=== PATIENT | female | born 2005 | race Caucasian/White ===

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

== ENCOUNTER → 2023-02-24 | Outpatient (CLI) | payer OTHER | LOC: M WHC 13:30 | PROVIDERS: ATTEND Nurse Practitioner Women's Health | DX: D24.2 Benign neoplasm of left breast (principal) ==

== ENCOUNTER → 2023-05-09 | Outpatient (CLI) | payer OTHER | LOC: M RAD 09:25 | PROVIDERS: ATTEND Nurse Practitioner Family | DX: R06.02 Shortness of breath (principal) ==

== ENCOUNTER → 2024-02-18 | Outpatient (CLI) | payer OTHER | LOC: M WHC 07:57 | PROVIDERS: ATTEND Nurse Practitioner Family | DX: N64.4 Mastodynia (principal); N63.11 Unspecified lump in the right breast, upper outer quadrant ==

== ENCOUNTER → 2024-06-11 | Outpatient (REF) | payer OTHER ==
[2024-06-11 17:44] LABS: BASO # 0.1 10^3/uL (0.0-0.2); BASO % 0.9 % (0.0-1.0); EOS # 0.1 10^3/uL (0.0-0.5); EOS % 1.6 % (0.0-3.0); HEMATOCRIT 38.8 % (36.0-47.0); LYMPH # 2.1 10^3/uL (1.5-5.0); LYMPH % 36.8 % (24.0-44.0); MEAN CORPUSCULAR HEMOGLOBIN 29.4 pg (27.0-33.0); MEAN CORPUSCULAR HGB CONC 33.5 g/dl (32.0-36.5); MEAN CORPUSCULAR VOLUME 87.8 fl (80.0-96.0); MONO # 0.5 10^3/uL (0.0-0.8); MONO % 9.6 % (2.0-8.0); NEUTROPHILS # 2.9 10^3/uL (1.5-8.5); NEUTROPHILS % 50.9 % (36.0-66.0); PLATELET COUNT, AUTOMATED 342 10^3/uL (150-450); RED BLOOD COUNT 4.42 10^6/uL (4.00-5.40); WHITE BLOOD COUNT 5.6 10^3/uL (4.0-10.0)
[2024-06-11 18:05] LABS: HEMOGLOBIN A1c 5.1 % (4.0-6.0)
[2024-06-11 18:15] LABS: ALKALINE PHOSPHATASE 77 U/L (46-116); ALT/SGPT 29 U/L (7.0-40); AST/SGOT 17 U/L (<34); BILIRUBIN,TOTAL 0.3 MG/DL (0.3-1.2); BLOOD UREA NITROGEN 17 MG/DL (9-23); CALCIUM LEVEL 9.3 MG/DL (8.5-10.1); CARBON DIOXIDE LEVEL 27 MMOL/L (20-31); CHLORIDE LEVEL 106 MMOL/L (98-107); CHOLESTEROL LEVEL 155 MG/DL (<200); CHOLESTEROL RISK RATIO 2.72 (<5); CREATININE FOR GFR 0.63 MG/DL (0.55-1.30); FREE T4 0.92 NG/DL (0.83-1.43); GLUCOSE, FASTING 91 MG/DL (60-100); HDL CHOLESTEROL 56.8 MG/DL (>40); NON-HDL-C 98.2 MG/DL; POTASSIUM SERUM 4.8 MMOL/L (3.5-5.1); SODIUM LEVEL 138 MMOL/L (136-145); TRIGLYCERIDES LEVEL 41 MG/DL (<150)
== END ==
LOC: M SFHCCLAY 09:32
PROVIDERS: ATTEND Nurse Practitioner Family
DX: F41.9 Anxiety disorder, unspecified (principal); R63.5 Abnormal weight gain

== ENCOUNTER → 2024-09-30 | Outpatient (REF) | payer OTHER ==
[2024-09-30 19:47] LABS: BASO # 0.1 10^3/uL (0.0-0.2); EOS # 0.1 10^3/uL (0.0-0.5); EOS % 1.4 % (0.0-3.0); HEMATOCRIT 40.1 % (36.0-47.0); HEMOGLOBIN 13.2 g/dl (12.0-15.5); LYMPH # 1.8 10^3/uL (1.5-5.0); LYMPH % 31.7 % (24.0-44.0); MEAN CORPUSCULAR HEMOGLOBIN 28.8 pg (27.0-33.0); MEAN CORPUSCULAR HGB CONC 32.9 g/dl (32.0-36.5); MEAN CORPUSCULAR VOLUME 87.4 fl (80.0-96.0); MONO # 0.4 10^3/uL (0.0-0.8); MONO % 6.9 % (2.0-8.0); NEUTROPHILS # 3.4 10^3/uL (1.5-8.5); PLATELET COUNT, AUTOMATED 346 10^3/uL (150-450); RED BLOOD COUNT 4.59 10^6/uL (4.00-5.40); WHITE BLOOD COUNT 5.8 10^3/uL (4.0-10.0)
[2024-09-30 19:57] LABS: HEMOGLOBIN A1c 5.1 % (4.0-6.0)
[2024-09-30 20:04] LABS: ALBUMIN 3.8 G/DL (3.2-5.2); ALKALINE PHOSPHATASE 83 U/L (35-104); ALT/SGPT 26 U/L (7.0-40); AST/SGOT 13 U/L (<34); BILIRUBIN,TOTAL 0.5 MG/DL (0.3-1.2); BLOOD UREA NITROGEN 9 MG/DL (9-23); CALCIUM LEVEL 9.5 MG/DL (8.5-10.1); CARBON DIOXIDE LEVEL 28 MMOL/L (20-31); CHLORIDE LEVEL 106 MMOL/L (98-107); CREATININE FOR GFR 0.54 MG/DL (0.55-1.30); GLOMERULAR FILTRATION RATE > 60.0 (>60); GLUCOSE, FASTING 86 MG/DL (60-100); IRON (FE) 76 UG/DL (50-170); PERCENT SATURATION 20.7 % (13.2-45.0); POTASSIUM SERUM 4.5 MMOL/L (3.5-5.1); SODIUM LEVEL 141 MMOL/L (136-145); TOTAL IRON BINDING CAPACITY 367 UG/DL (250-425); TOTAL PROTEIN 7.3 G/DL (5.7-8.2)
[2024-09-30 20:08] LABS: FREE T4 0.91 NG/DL (0.89-1.76)
[2024-09-30 20:09] LABS: FERRITIN 16.5 NG/ML (7.3-270.7); THYROID STIMULATING HORMONE 1.967 uIU/ML (0.55-4.78)
[2024-09-30 20:10] LABS: FOLLICLE STIMULATING HORMONE 6.1 mIU/ML; LUTEINIZING HORMONE 9.7 mIU/ML
[2024-09-30 20:11] LABS: TESTOSTERONE 34 NG/DL (14-76)
[2024-09-30 20:12] LABS: FOLATE 17.05 NG/ML (>5.4)
[2024-09-30 20:13] LABS: VITAMIN B12 LEVEL 458 PG/ML (211-911)
[2024-10-02 08:11] LABS: FREE ANDROGEN INDEX 3.4 (0.4-8.4); SEX HORM BINDING GLOB 26.8 nmol/L (24.6-122.0); TESTOSTERONE 26 ng/dL (13-71)
== END ==
LOC: M SFHCCLAY 10:23
PROVIDERS: ATTEND Nurse Practitioner Family
DX: R63.5 Abnormal weight gain (principal); J45.909 Unspecified asthma, uncomplicated; N92.6 Irregular menstruation, unspecified; R56.9 Unspecified convulsions; F41.0 Panic disorder [episodic paroxysmal anxiety]

== ENCOUNTER → 2025-01-31 | Outpatient (REF) | payer MEDICAID, OTHER ==
[2025-02-04 15:12] LABS: HPV APTIMA Not Detected (Not Detected)
== END ==
LOC: M SFHCWAGY 08:58
PROVIDERS: ATTEND Nurse Practitioner Family
DX: Z12.4 Encounter for screening for malignant neoplasm of cervix (principal); R87.610 Atypical squamous cells of undetermined significance on cytologic smear of cervix (ASC-US)

== ENCOUNTER → 2025-03-30 | Outpatient (REF) | payer OTHER ==
[2025-03-30 12:44] LABS: HCG, SERUM QUANTITATIVE < 2.6 MIU/ML (<4.2)
[2025-03-30 13:02] LABS: HCG, SERUM QUALITATIVE NEGATIVE (NEGATIVE)
== END ==
LOC: M SFHCCLAY 07:32
PROVIDERS: ATTEND Nurse Practitioner Family
DX: N92.6 Irregular menstruation, unspecified (principal)